=== PATIENT | female | born 1955 | race Caucasian/White ===

== ENCOUNTER 2019-08-01 09:39 | Day surgery (SDC) | payer MEDICAID ==
[~2019-08-01] VITALS: Ht 165.1 cm; Wt 71.8 kg
[~2019-08-01 09:39] MED LIST: MELO-100 PO; SERT50TA PO
[2019-08-01 09:50] VITALS: BP 110/88
[2019-08-01] MEDS ORDERED: FLUT16SP2 BOTHNARES (10:00)
[2019-08-01] MEDS ORDERED: MONT4TAB9 PO (10:00)
[2019-08-01] MEDS ORDERED: OMEP20TA5 PO (10:01)
[2019-08-01] MEDS ORDERED: MIDAZolam 5mg/5ml vial ONE (10:26)
[2019-08-01] MEDS ORDERED: fentaNYL/PF 50MCG/1 ML 2ML syringe ONE (10:26)
[2019-08-01] MEDS ORDERED: LIDOcaine Viscous 15ml cup ONE (10:27)
[2019-08-01 10:49] VITALS: BP 132/82
[2019-08-01 10:59] VITALS: BP 122/77
[2019-08-01 11:09] VITALS: BP 128/85
[2019-08-01 11:19] VITALS: BP 11/79
== END 2019-08-01 11:30 | disposition home or self-care (01) ==
LOC: GI LAB 09:39
PROVIDERS: ATTEND Internal Medicine Gastroenterology
DX: R10.13 Epigastric pain (principal); K29.50 Unspecified chronic gastritis without bleeding; Z79.899 Other long term (current) drug therapy
CPT/HCPCS: 43239; 99152; J2250; J3010; J7040; A4620